=== PATIENT | male | born 1970 | race African-American/Black ===

== ENCOUNTER 2016-10-19 14:02 | Emergency (ER) | payer SELFPAY ==
[2016-10-19 15:04] VITALS: BP 144/89; PULSE 76; TEMP 98.4; BMI 23.7
[2016-10-19] MEDS ORDERED: IBUPROFEN 600 MG TABLET (FP) PO ONE ×3 (16:43→16:47)
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
[2016-10-19] MEDS ORDERED: LIDOCAINE 5% TOPICAL PATCH TP ONE (18:06)
== END 2016-10-19 18:11 | disposition home or self-care (01) ==
LOC: JERFT 14:02
DX: V44.6XXA Car passenger injured in collision with heavy transport vehicle or bus in traffic accident, initial encounter (principal); Y92.488 Other paved roadways as the place of occurrence of the external cause; Y93.89 Activity, other specified
CPT/HCPCS: 71020-TC; 71101-TC; 99281-25